=== PATIENT | male | born 1980 | race African-American/Black ===

== ENCOUNTER 2018-06-20 18:07 | Emergency (ER) | payer MEDICAID ==
[~2018-06-20] VITALS: Ht 177.8 cm; Wt 74.0 kg
[2018-06-20 18:21] VITALS: BP 118/84
== END 2018-06-20 22:45 | disposition left against medical advice (07) ==
LOC: ER 18:10
DX: N48.89 Other specified disorders of penis (principal); Z53.21 Procedure and treatment not carried out due to patient leaving prior to being seen by health care provider

== ENCOUNTER 2018-06-30 03:24 | Emergency (ER) | payer MEDICAID ==
[~2018-06-30] VITALS: Ht 177.8 cm; Wt 84.0 kg
[2018-06-30 04:53] VITALS: BP 144/93
== END 2018-06-30 04:54 | disposition home or self-care (01) ==
LOC: ER 03:25
DX: R07.89 Other chest pain (principal); R55 Syncope and collapse; F12.90 Cannabis use, unspecified, uncomplicated; F15.90 Other stimulant use, unspecified, uncomplicated; F17.200 Nicotine dependence, unspecified, uncomplicated
CPT/HCPCS: 36415; 71045; 84484; 93005; 99284

== ENCOUNTER 2018-07-11 12:19 | Emergency (ER) | payer MEDICAID ==
[~2018-07-11] VITALS: Ht 177.8 cm; Wt 84.1 kg
[2018-07-11] MEDS ORDERED: diphenhydrAMINE 25 MG/10 ML UD oral solution PO ONE ×2 (12:30→13:30)
[2018-07-11] MEDS ORDERED: famotidine 20mg tablet PO ONE (13:30)
[2018-07-11] MEDS ORDERED: dexamethasone 4mg tablet PO ONE (13:30)
[2018-07-11] MEDS ORDERED: DIPH25CA83 PO (13:32)
[2018-07-11 13:47] VITALS: BP 125/73
== END 2018-07-11 13:54 | disposition home or self-care (01) ==
LOC: ER 12:20
DX: L27.2 Dermatitis due to ingested food (principal); J30.2 Other seasonal allergic rhinitis; F12.90 Cannabis use, unspecified, uncomplicated; F15.90 Other stimulant use, unspecified, uncomplicated; Z79.899 Other long term (current) drug therapy
CPT/HCPCS: 99284; J8540; Q0163

== ENCOUNTER 2020-01-21 19:59 | Emergency (ER) | payer MEDICAID ==
[~2020-01-21 19:59] MED LIST: DIPH25CA83 PO
== END 2020-01-21 20:11 | disposition left against medical advice (07) ==
LOC: ER 20:00
DX: E88.89 Other specified metabolic disorders (principal); Z53.21 Procedure and treatment not carried out due to patient leaving prior to being seen by health care provider

== ENCOUNTER 2020-04-12 16:07 | Emergency (ER) | payer MEDICAID ==
[~2020-04-12] VITALS: Ht 177.8 cm; Wt 81.8 kg
[2020-04-12] MEDS ORDERED: SILV50CR31 TOP (16:17)
[2020-04-25] MEDS ORDERED: CEPH-585 PO (09:23)
== END 2020-04-12 16:30 | disposition home or self-care (01) ==
LOC: ER 16:08
DX: T23.021A Burn of unspecified degree of single right finger (nail) except thumb, initial encounter (principal); T31.0 Burns involving less than 10% of body surface; M79.644 Pain in right finger(s); F12.90 Cannabis use, unspecified, uncomplicated; F15.90 Other stimulant use, unspecified, uncomplicated; Z79.899 Other long term (current) drug therapy; X08.8XXA Exposure to other specified smoke, fire and flames, initial encounter; Y93.89 Activity, other specified; Y92.89 Other specified places as the place of occurrence of the external cause; Y99.8 Other external cause status
CPT/HCPCS: 16000; 99283

== ENCOUNTER 2020-04-15 15:24 | Emergency (ER) | payer MEDICAID ==
[~2020-04-15] VITALS: Ht 177.8 cm; Wt 81.0 kg
[~2020-04-15 15:24] MED LIST changes: +SILV50CR31 TOP
[2020-04-15] MEDS ORDERED: TETanus/Pertussis (Acell)/Diphther VAC/PF (Tdap-Adult) 0.5ml syringe IMVAC ONE (17:05)
[2020-04-15] MEDS ORDERED: LIDOcaine 1% W/epiNEPHrine 1:200,000 10ml vial IJ ONE (17:05)
[2020-04-15] MEDS ORDERED: ACET-890 PO (17:58)
== END 2020-04-15 18:02 | disposition home or self-care (01) ==
LOC: ER 15:25
DX: L03.011 Cellulitis of right finger (principal); F12.90 Cannabis use, unspecified, uncomplicated; F15.90 Other stimulant use, unspecified, uncomplicated; Z79.899 Other long term (current) drug therapy
CPT/HCPCS: 10060; 90715; 99282

== ENCOUNTER 2020-04-25 07:59 | Emergency (ER) | payer MEDICAID ==
[~2020-04-25] VITALS: Ht 180.3 cm; Wt 82.0 kg
[~2020-04-25 07:59] MED LIST changes: -SILV50CR31 TOP
[2020-04-25 08:04] VITALS: BP 123/80
[2020-04-25] MEDS ORDERED: CEPH500C5 PO (09:23)
[2020-04-25] MEDS ORDERED: SULF1TAB49 PO (09:23)
== END 2020-04-25 09:50 | disposition home or self-care (01) ==
LOC: ER 08:00
DX: L03.011 Cellulitis of right finger (principal); F12.90 Cannabis use, unspecified, uncomplicated; F15.90 Other stimulant use, unspecified, uncomplicated; Z79.2 Long term (current) use of antibiotics; Z79.899 Other long term (current) drug therapy
CPT/HCPCS: 99283

== ENCOUNTER 2020-09-17 03:41 | Emergency (ER) | payer MEDICAID ==
[~2020-09-17] VITALS: Ht 180.3 cm; Wt 85.0 kg
[~2020-09-17 03:41] MED LIST changes: +CEPH-585 PO
[2020-09-17 03:44] VITALS: BP 132/94
== END 2020-09-17 04:40 | disposition home or self-care (01) ==
LOC: ER 03:42
DX: R07.2 Precordial pain (principal); R06.02 Shortness of breath; R42 Dizziness and giddiness; F15.90 Other stimulant use, unspecified, uncomplicated; F12.90 Cannabis use, unspecified, uncomplicated; E11.9 Type 2 diabetes mellitus without complications; Z86.73 Personal history of transient ischemic attack (TIA), and cerebral infarction without residual deficits; Z79.2 Long term (current) use of antibiotics; Z79.899 Other long term (current) drug therapy
CPT/HCPCS: 93005; 99283

== ENCOUNTER 2022-08-17 02:51 | Emergency (ER) | payer MEDICAID ==
[~2022-08-17] VITALS: Ht 180.3 cm; Wt 78.8 kg
[~2022-08-17 02:51] MED LIST changes: -CEPH-585 PO
[2022-08-17] MEDS ORDERED: aspirin 81mg tab.chew PO ONE (03:05)
[2022-08-17 03:09] VITALS: BP 138/87
[2022-08-17 04:06] LABS: ALANINE AMINOTRANSFERASE 42 U/L (12-78); ALBUMIN 4.2 G/DL (3.4-5.0); ALBUMIN/GLOBULIN RATIO 1.2 (1.1-1.5); ALKALINE PHOSPHATASE 70 IU/L (46-116); ANION GAP 6 (8-16); ASPARTATE AMINO TRANSFERASE 24 U/L (10-37); BILIRUBIN,TOTAL 1.8 MG/DL (0.1-1.0); BLOOD UREA NITROGEN 6 MG/DL (7-18); BUN/CREATININE RATIO 5.5 (10.0-20.0); CALCIUM 9.2 MG/DL (8.5-10.1); CHLORIDE 103 MMOL/L (99-107); GLUCOSE 118 MG/DL (70-104); POTASSIUM 3.5 MMOL/L (3.5-5.1); SODIUM 138 MMOL/L (135-145); TOTAL CARBON DIOXIDE 29.2 MMOL/L (24-32); TOTAL PROTEIN 7.6 G/DL (6.4-8.2); eGFR 90 ML/MIN
[2022-08-17 04:07] LABS: BASOPHILS # (AUTO) 0.1 X10'3 (0-0.2); EOSINOPHILS # (AUTO) 0.1 X10'3 (0-0.9); EOSINOPHILS % (AUTO) 2.1 % (0-6); HEMATOCRIT 43.7 % (42.0-52.0); HEMOGLOBIN 14.6 g/dl (14.0-17.9); LYMPHOCYTES # (AUTO) 2.5 X10'3 (1.1-4.8); LYMPHOCYTES % (AUTO) 37.4 % (21-51); MEAN CORPUSCULAR HEMOGLOBIN 30.1 PG (27.0-31.0); MEAN CORPUSCULAR HGB CONC 33.5 g/dL (33.0-36.5); MEAN CORPUSCULAR VOLUME 89.9 FL (78-98); MEAN PLATELET VOLUME 8.5 FL (7.4-10.4); MONOCYTES # (AUTO) 0.4 X10'3 (0-0.9); MONOCYTES % (AUTO) 6.3 % (2-12); NEUTROPHILS # (AUTO) 3.6 X10'3 (1.8-7.7); NEUTROPHILS % (AUTO) 53.2 % (42-75); PLATELET COUNT 245 X10'3 (140-440); RED BLOOD COUNT 4.86 X10'6 (4.70-6.10); RED CELL DISTRIBUTION WIDTH 12.7 % (11.5-14.5); WHITE BLOOD COUNT 6.7 X10'3 (4.5-11.0)
== END 2022-08-17 04:44 | disposition home or self-care (01) ==
LOC: ER 02:52
DX: R07.89 Other chest pain (principal); M54.31 Sciatica, right side; F12.90 Cannabis use, unspecified, uncomplicated; F15.90 Other stimulant use, unspecified, uncomplicated; Z79.899 Other long term (current) drug therapy
CPT/HCPCS: 36415; 71045; 80053; 84484; 85025; 85610; 93005; 99285

== ENCOUNTER 2024-08-16 07:08 | Emergency (ER) | payer MEDICAID ==
[~2024-08-16] VITALS: Ht 180.3 cm; Wt 77.8 kg
[2024-08-16 07:13] VITALS: BP 133/89; PULSE 93; RESP 18; TEMP 97.6; O2SAT 99
[2024-08-16] MEDS ORDERED: LIDOcaine 1% W/epiNEPHrine 1:100,000 20ml vial SQ ONE (07:30)
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
== END 2024-08-16 13:03 | disposition left against medical advice (07) ==
LOC: ER 07:08
DX: S51.811A Laceration without foreign body of right forearm, initial encounter (principal); F12.90 Cannabis use, unspecified, uncomplicated; F15.90 Other stimulant use, unspecified, uncomplicated; X58.XXXA Exposure to other specified factors, initial encounter; Y93.89 Activity, other specified; Y92.89 Other specified places as the place of occurrence of the external cause; Y99.8 Other external cause status
CPT/HCPCS: 99281

== ENCOUNTER 2024-09-07 20:54 | Emergency (ER) | payer MEDICAID ==
[~2024-09-07] VITALS: Ht 180.3 cm; Wt 78.7 kg
--- NOTE | 2024-09-07 21:11 | Physician Documentation ---
History of Present Illness ~ Stated Complaint: BACK PAIN Time Seen by MD: 21:06 Primary Medical Doctor: NONE HPI 44-year-old male presents to the ED after falling at [employer] this evening hitting his lumbosacral region and striking the back of his head. Denies any loss of consciousness. He has no bleeding evident. Patient denies any nausea vomiting headaches or light sensitivity. Patient reports one episode of urinary incontinence after the fall Day of Onset: Sep 07, 2024 Medication Reconciliation Allergies: Coded Allergies: No Known Allergies (Unverified , 08/16/24) Scheduled PRN Diphenhydramine Hcl (Benadryl), 1 CAP PO TID PRN PRN for allergies Past Medical History Past Medical History: No Pertinent History Past Surgical History: no surgical history Alcohol Use: None Drug Use: marijuana, methamphetamine Lives In: Home Review of Systems All Other Systems at this time: Reviewed and Negative ROS As stated above in the HPI, otherwise all systems are reviewed and negative. Physical Exam Physical Exam Physical Exam General: Alert, no apparent distress. head: No evidence of hematoma in the posterior aspect no adamson signs of Psychiatric: Normal mood and affect. Back: Lumbosacral tenderness via palpation. Skin: Normal color, warm and dry. No edema, no ecchymosis. Progress Results/Orders Results/Orders Orders - FAM RAMIREZ WINDER FIXER Ct Lumbar Spine (09/07/24 22:34) Completed Orders - FAM RAMIREZ WINDER FIXER Ct Lumbar Spine (09/07/24 22:34) Ketorolac Trometh 30mg/Ml Vial (Toradol (09/07/24 22:00) Medications Received in ER Medications (Trade) Dose Ordered Sig/Carlos Route PRN Reason Start Time Stop Time Status Last Admin Dose Admin (Toradol inj. 30mg/ml) 30 mg ONCE ONCE IM 09/07/24 22:00 09/07/24 22:01 DC 09/07/24 22:06 30 MG Vital Signs 09/07/24 09/07/24 09/07/24 21:12 22:06 22:06 Temp 98.0 Pulse 75 Resp 16 16 B/P (MAP) 130/84 Pulse Ox 100 O2 Flow Rate 0 Medical Decision Making Findings This patient left his room without receiving full treatment. Unable to provide him with CT results or further treatment Differential Dx:Considerations: Include: AAA, Aortic dissection, Appendicitis, Bowel obstruction, Cholelithiasis, Cholangitis, DJD, Fracture, Hepatitis, HNP, Musculoskeletal pain, Pancreatitis, Pyelonephritis, Renal infarction, Strain, Urinary obstruction, Urolithiasis, Urinary tract infection, Other Departure Disposition: 07 LEFT AWOL/ELOPED Impression: Primary Impression: Fall Discharge Instructions: Fall Prevention in the Home, Adult, [id number] Referrals: NO PRIMARY CARE PROVIDER (PCP) Signature Scribe Signature: g Attestation: Scribed for Fam Ramirez Sailing Instructor by Fam Guevara NP . 09/07/24 23:29 FAM RAMIREZ NP Sep 07, 2024 21:11
[2024-09-07 21:12] VITALS: BP 130/84; PULSE 75; TEMP 98; O2SAT 100
[2024-09-07 22:06] VITALS: RESP 16
[2024-09-07] MEDS: ketorolac trometh 30MG/ML vial 30 MG/ML VIAL IM ONE (22:06)
--- NOTE | 2024-09-08 00:42 | RADIOLOGY REPORT ---
Clinical History fall with inconttenance, INCLUDE COCCYX Comparison None Technique: Contiguous axial images are acquired from the T12 to the S1 level. The data is reconstruc kristy in the sagittal and coronal planes. All CT scans at this medical facility are performed using dose modulation techniques as appropriate t o a performed exam including the following: Automated exposure control was utilized; adjustment of th e mA and/or kV according to patient size; and use of iterative reconstruction technique. All CT studies are reported to the Dose Index Registry of the [employer]. Without Contrast Radiation Dose: CTDI (mGy): 11; DLP (mGy-cm): [address] HAMMAD, [id number] findings: Lumbar vertebral bodies demonstrate anatomic height. No evidence of acute fracture or dislocation. Loss of disc height with a vacuum disc at the L4-L5 though. Spinous processes and transverse processes are intact. Facet joints are normal in appearance. Sacrum is normal in appearance. Impression: 1. No evidence of an acute fracture or dislocation 2. Degenerative changes in lumbar spine. 4. Normal appearance of the visualized sacrum. Coccyx is not imaged on the study. This report was electronically signed by Alexx Lebron MD on 09/08/2024 12:39:42 AM.
== END 2024-09-07 23:48 | disposition left against medical advice (07) ==
LOC: ER 20:54
DX: M54.9 Dorsalgia, unspecified (principal); F12.90 Cannabis use, unspecified, uncomplicated; F15.90 Other stimulant use, unspecified, uncomplicated; W19.XXXA Unspecified fall, initial encounter; Y93.89 Activity, other specified; Y92.89 Other specified places as the place of occurrence of the external cause; Y99.8 Other external cause status
CPT/HCPCS: 72131; 96372; 99285; J1885

== ENCOUNTER 2024-11-20 12:56 | Emergency (ER) | payer MEDICAID ==
[~2024-11-20] VITALS: Ht 180.3 cm; Wt 74.4 kg
[2024-11-20 12:58] VITALS: BP 130/81; PULSE 78; RESP 18; TEMP 97.3; O2SAT 98
== END 2024-11-20 13:49 | disposition left against medical advice (07) ==
LOC: ER 12:56
DX: M54.9 Dorsalgia, unspecified (principal); Z53.21 Procedure and treatment not carried out due to patient leaving prior to being seen by health care provider